=== PATIENT | female | born 1985 | race Caucasian/White ===

== ENCOUNTER 2017-07-23 06:09 | Day surgery (SDC) | payer BC ==
[2017-07-19 15:47] VITALS: BMI 21.6
[2017-07-23] MEDS ORDERED: KETOROLAC TROMETHAMINE 30 MG/1 ML VIAL ONE (07:32)
[2017-07-23] MEDS ORDERED: PROPOFOL 20 ML ONE (07:32)
[2017-07-23] MEDS ORDERED: MIDAZOLAM HCL 2 MG/2 ML SINGLE DOSE VIAL ONE (07:32)
[2017-07-23] MEDS ORDERED: LEVOFLOXACIN 500 MG IVPB 500 MG/100 ML BAG IVPB ONE ×2 (07:34→07:41)
[2017-07-23] MEDS ORDERED: LEVOFLOXACIN 500 MG PREMIX BAG IVPB ONE (07:43)
[2017-07-23] MEDS ORDERED: oxyCODONE HCL 5 MG TABLET PO PRN (07:52)
--- NOTE | 2017-07-23 07:54 | OP ---
Operative Note - Note: Operative Date: 07/23/17 Pre-Operative Diagnosis: rt kidney stone Operation: ESWL Findings: RK stones Post-Operative Diagnosis: Same as Pre-op Surgeon: Javad Green Anesthesia: General Estimated Blood Loss (mls): 0 Operative Report Dictated: Yes
[2017-07-23] MEDS ORDERED: DEXTROSE 5%-0.45% SALINE 1,000 ML IV SCH (08:00)
[2017-07-23] MEDS ORDERED: ACETAMINOPHEN 325 MG TABLET (FP) PO PRN (08:15)
[2017-07-23] MEDS ORDERED: LACTATED RINGERS SOLUTION 1,000 ML IV SCH (08:15)
[2017-07-23] MEDS ORDERED: ONDANSETRON 4 MG/2 ML VIAL IVPUSH PRN (08:15)
[2017-07-23 08:48] VITALS: TEMP 97.9
[2017-07-23 11:24] VITALS: BP 115/71; PULSE 96
--- NOTE | 2017-07-23 15:04 | OP ---
DATE OF OPERATION: 07/23/2017 PREOPERATIVE DIAGNOSIS: Right kidney stones. POSTOPERATIVE DIAGNOSIS: Right kidney stones. PROCEDURE: Extracorporeal shock wave lithotripsy. SURGEON: Magnolia Shi MD INDICATION: Patient is a 32-year-old female who for workup of hematuria was noted to have several stones in mid-pole of right kidney with obstructing mid-pole calyx. She was given treatment options. After reviewing treatment options, patient was taken to the OR for ESWL. Risks, benefits, and alternatives discussed. DESCRIPTION OF PROCEDURE: After informed consent was obtained, patient was taken to the OR and placed supine on the ESWL table. Under active fluoroscopy and sonogram, the mid-pole stones were identified. They were approximately 3 or 4 them. Next, 2500 shocks were delivered under active both fluoroscopy and sonogram to determine that the stones were centered in the crosshairs at all times. In total, 2500 shocks were delivered. After the completion of the shock administration, the patient then awoke from anesthesia and transferred to the recovery room in stable condition. There were no complications. No blood loss. MAGNOLIA SHI M.D. [id number]
== END 2017-07-23 10:45 | disposition home or self-care (01) ==
LOC: JASU-SURG 06:09
PROVIDERS: ATTEND Urology
PROC: 0TF3XZZ Fragmentation in Right Kidney Pelvis, External Approach (ICD-10-PCS; principal; 2017-07-23 07:30)
DX: N20.0 Calculus of kidney (principal)
CPT/HCPCS: 84703; 94760

== ENCOUNTER 2017-12-05 06:10 | Inpatient (IN) | payer OTHER ==
[2017-12-04 08:56] VITALS: BMI 22.1
[2017-12-05] MEDS ORDERED: LIDOCAINE HCL/PF 2% SDV 5ML VIAL ONE (07:35)
[2017-12-05] MEDS ORDERED: MIDAZOLAM HCL 2 MG/2 ML SINGLE DOSE VIAL ONE (07:36)
[2017-12-05] MEDS ORDERED: PROPOFOL 20 ML ONE (07:36)
[2017-12-05] MEDS ORDERED: DEXAMETHASONE SOD PHOSPHATE 4 MG/1 ML VIAL ONE (07:55)
[2017-12-05] MEDS ORDERED: FUROSEMIDE 40 MG/4 ML INJECTABLE VIAL ONE (08:00)
[2017-12-05] MEDS ORDERED: ESMOLOL HCL 100,000 MCG/10 ML VIAL ONE (08:03)
[2017-12-05] MEDS ORDERED: HYDROCORTISONE SOD SUCCINATE 2 ML ONE (08:13)
[2017-12-05] MEDS ORDERED: METOPROLOL TARTRATE 5 MG/5 ML VIAL ONE (08:15)
[2017-12-05] MEDS ORDERED: EPINEPHrine 1:10,000 (P-F SYR) 1 MG/10 ML DISP.SYRIN ONE (08:33)
[2017-12-05] MEDS ORDERED: oxyCODONE HCL 5 MG TABLET PO PRN (08:41)
--- NOTE | 2017-12-05 08:41 | OP ---
Operative Note - Note: Operative Date: 12/05/17 Pre-Operative Diagnosis: rt kidney stone Operation: cysto/rt retrograde/rt ureteroscopy Findings: parenchymal kidney stones Post-Operative Diagnosis: Other (parenchymal rt stones) Surgeon: Javad Green Anesthesiologist/TAMPING MACHINE OPERATOR: Kelly Bryant Anesthesia: General Specimens Removed: none Estimated Blood Loss (mls): 0 Operative Report Dictated: Yes
[2017-12-05] MEDS ORDERED: ELECTROLYTE-148 SOLN 1,000 ML IV SCH (08:45)
[2017-12-05] MEDS ORDERED: ONDANSETRON 4 MG/2 ML VIAL IVPUSH PRN (08:56)
[2017-12-05] MEDS ORDERED: LACTATED RINGERS SOLUTION 1,000 ML IV SCH (09:00)
--- NOTE | 2017-12-05 10:00 | OP ---
DATE OF OPERATION: 12/05/2017 PREOPERATIVE DIAGNOSIS: Right kidney stone. POSTOPERATIVE DIAGNOSIS: Parenchymal stones, right kidney. PROCEDURE: Cystoscopy, retrograde pyelogram, ureteroscopy. SURGEON: Javad Green MD INDICATION: Patient is a 32-year-old female with recurrent nephrolithiasis, had right mid-pole stones on CT scan and ultrasound. Had ESWL in the past but did not pass any stone fragments. Imaging revealed possible calyceal diverticulum with obstruction of one calyx by stone. So, she was taken to the OR for diagnostic ureteroscopy in light of prior failed ESWL and persistence of stone burden. DESCRIPTION OF PROCEDURE: Patient taken to the OR, placed supine on the table. Cardiac monitoring administered and general anesthesia established. She was prepped and draped in dorsal lithotomy position. The cystoscope was inserted into the urethra without difficulty. The bladder was visually normal. At the time of procedure, patient received 500 mg of IV Levaquin. The right ureteral orifice was intubated with the ureteral catheter, and a small amount of contrast was injected for a retrograde pyelogram. There was no evidence of hydronephrosis and no evidence of any stones or filling defect. A guidewire was advanced and then a flexible ureteroscope advanced into the right kidney. The entire kidney was inspected, upper, mid, and lower poles, and no stones were seen. No calyceal diverticulum was seen either, indicating that the stones on CT scan were likely parenchymal. At this point, with no other pathology noted, ureteroscope was then removed, and decision made not to leave a stent. Just about this point, probably 10-15 minutes into the procedure, the patient started developing abnormal rhythm and developed ventricular tachycardia which was treated by Anesthesia. The patient then became bradycardic to a very slow rhythm and then no pulse. A code was called and carried out according to protocol. Patient's rhythm then returned. Of note, patient had around the same time developed redness in the upper chest and the face and neck area with hives, indicating likely allergic reaction, and most likely now in retrospect to the Levaquin. In light of this, she was also given hydrocortisone. Once her heart rate and blood pressure stabilized, she was awoken from anesthesia and with normal mentation, and she was brought to the recovery room in stable condition. Patient will be seen by Cardiology in the recovery room, and further recommendations will be made pending that consultation. Magalis [id number] PAMDINI
[2017-12-05 10:12] LABS: HEMOGLOBIN 12.1 GM/dL (10.7-15.3); MCH 29.4 pg (25.7-33.7); MCHC 33.7 g/dl (32.0-36.0); MEAN CELL VOLUME 87.1 fl (80-96); MEAN PLT VOLUME 10.1 fl (7.5-11.1); PLATELET COUNT 191 K/MM3 (134-434); RBC 4.13 M/mm3 (3.60-5.2)
[2017-12-05 10:41] LABS: ALBUMIN 3.7 g/dl (3.4-5.0); ANION GAP 11 (8-16); BLOOD UREA NITROGEN 20 mg/dL (7-18); CALCIUM 8.6 mg/dL (8.5-10.1); CHLORIDE 106 mmol/L (98-107); CO2 23 mmol/L (21-32); GLUCOSE,RANDOM 148 mg/dL (74-106); POTASSIUM 3.6 mmol/L (3.5-5.1); SODIUM 140 mmol/L (136-145)
[2017-12-05 10:45] LABS: ALK PHOS 46 U/L (45-117); BILIRUBIN,TOTAL 0.6 mg/dL (0.2-1.0); SGOT/AST 35 U/L (15-37); SGPT/ALT 39 U/L (12-78); TOT PROT 6.4 g/dl (6.4-8.2)
--- NOTE | 2017-12-05 11:27 | EKG ---
Test Reason : Blood Pressure : / mmHG Vent. Rate : 091 BPM Atrial Rate : 091 BPM P-R Int : 116 ms QRS Dur : 090 ms QT Int : 370 ms P-R-T Axes : 078 078 -86 degrees QTc Int : 455 ms NORMAL SINUS RHYTHM MARKED ST ABNORMALITY, POSSIBLE INFERIOR SUBENDOCARDIAL INJURY MARKED ST ABNORMALITY, POSSIBLE ANTEROLATERAL SUBENDOCARDIAL INJURY ABNORMAL ECG NO PREVIOUS ECGS AVAILABLE Confirmed by MARY CARMEN TRENT, ERINN ([id number]) on 12/05/2017 11:27:14 AM Referred By: Confirmed By:ERINN LENTZ MD
--- NOTE | 2017-12-05 11:47 | CON.CARD ---
Consult Consult Specialty:: Cardiology Referred by:: Dr. Javad Green Reason for Consultation:: Cardiac arrhythmia during surgery - History of Present Illness History of Present Illness: Patient is a 32 year old female with no significant past medical history except allergies to different food and possibly PCN who presented for ureteral stent with underlying history of nephrolithiasis. In the OR , she was given Levaquin, Metoprolol, Lidocaine, Decadron, Zofran and Lasix and subsequently developed what appeared to be an allergic reaction and arrhythmias. It was thought that she had lost pulse and CPR was initiated and also in the process, Benadryl, steroids and epinephrine was given. Possible polymorphic ventricular arrhythmia was also entertained. She was resuscitated and now in recovery room where cardiology consultation was called. She denies history of QT prolongation or any history of long QT syndrome. She denies any family history of sudden cardiac . She denies chest pain, shortness of breath or palpitations. She denies paroxysmal nocturnal dyspnea. She denies nausea, vomiting, diarrhea or abdominal pain. She denies headache or lightheadedness. She has sinus tachycardia and hypotension in the recovery room and currently receiving IV fluids. She is awake and alert. There is no evidence of hives or skin rash at this time. She denies prior syncope. - History Source History Provided By: Patient, Family Member, Medical Record Limitations to Obtaining History: No Limitations - Past Medical History Renal/: Yes: Renal Calculi ...LMP: 11/09/17 - Past Surgical History Past Surgical History: Yes: Additional Surgical History: Lithotripsy - Alcohol/Substance Use Hx Alcohol Use: Yes (socially) - Smoking History Smoking history: Never smoked Home Medications - Allergies Allergies/Adverse Reactions: Allergies Allergy/AdvReac Type Severity Reaction Status Date / Time levofloxacin [From Levaquin] Allergy Severe Difficulty Verified 12/05/17 10:07 Breathing Penicillins Allergy Intermediate Hives Verified 12/05/17 06:51 mushrooms Allergy "hives" Uncoded 12/05/17 06:51 peaches Allergy "hives" Uncoded 12/05/17 06:51 - Home Medications Home Medications: Ambulatory Orders NK [No Known Home Medication] 07/22/17 Family Disease History - Family Disease History Family History: Denies Review of Systems - Review of Systems Constitutional: denies: Chills, Fever Cardiovascular: denies: Chest Pain, Palpitations, Shortness of Breath Respiratory: denies: Cough, Hemoptysis, Orthopnea, PND, SOB, SOB on Exertion Gastrointestinal: denies: Abdominal Pain, Constipation, Melena, Nausea, Rectal Bleeding, Vomiting Genitourinary: denies: Dysuria, Hematuria Neurological: denies: Dizziness, Headache, Numbness, Seizure, Syncope, Weakness Vital Signs: Vital Signs Temperature 98.2 F 12/05/17 08:39 Pulse Rate 92 H 12/05/17 10:55 Respiratory Rate 18 12/05/17 10:55 Blood Pressure 80/52 12/05/17 10:55 O2 Sat by Pulse Oximetry (%) 98 12/05/17 10:55 Eyes: Yes: PERRL HENT: Yes: Atraumatic Neck: Yes: Supple Respiratory: Yes: CTA Bilaterally Gastrointestinal: Yes: Normal Bowel Sounds, Soft. No: Tenderness Cardiovascular: Yes: Regular Rate and Rhythm, Tachycardia JVD: No Carotid Bruit: No PMI: Non-Displaced Heart Sounds: Yes: S1, S2. No: Gallop Murmur: No: Systolic Murmur, Diastolic Murmur Edema: No - Other Data Labs, Other Data: CBC, BMP 12/05/17 09:00 12/05/17 09:[address] depression and mild QT prolongation Echo: Pending Problem List - Problems (1) Prolonged QT interval Code(s): R94.31 - ABNORMAL ELECTROCARDIOGRAM [ECG] [EKG] (2) NSVT (nonsustained ventricular tachycardia) Code(s): I47.2 - VENTRICULAR TACHYCARDIA (3) Right kidney stone Code(s): N20.0 - CALCULUS OF KIDNEY Assessment/Plan 1. Cardiac arrhythmia and possible arrest during surgery, rule out ventricular arrhythmia 2. QT prolongation 3. Allergies to medications (PCN) 4. Hypotension PLAN: 1. In view of above event, recommend cardiac monitoring on telemetry. Monitor in recovery room reveals sinus tachycardia, QT prolongation and burst of NSVT. Upon review of prior OR records, she had received Levaquin in July 2017 without any events which demonstrates not an allergic reaction to the medication 2. IV fluids resuscitation 3. Transthoracic echocardiography to assess LV/RV and valvular function 4. Serial ECG and full labs to follow 5. Once she is deemed stable, she may continue to be evaluated as outpatient with her senior payroll manager at [facility]. Extended monitoring or other invasive cardiac testing can be done as outpatient if clinically indicated Discussed with family member in detail. Malka Witt MD
[2017-12-05 12:43] LABS: ANISOCYTOSIS 0; PLATELET ESTIMATE NORMAL
--- NOTE | 2017-12-05 13:00 | EKG ---
Test Reason : Blood Pressure : / mmHG Vent. Rate : 099 BPM Atrial Rate : 099 BPM P-R Int : 112 ms QRS Dur : 084 ms QT Int : 362 ms P-R-T Axes : 070 049 045 degrees QTc Int : 464 ms NORMAL SINUS RHYTHM NORMAL ECG WHEN COMPARED WITH ECG OF 05-DEC-2017 08:21, ST NO LONGER DEPRESSED IN LATERAL LEADS T WAVE INVERSION NO LONGER EVIDENT IN INFERIOR LEADS T WAVE INVERSION LESS EVIDENT IN ANTEROLATERAL LEADS Confirmed by ERINN LENTZ MD ([id number]) on 12/05/2017 1:00:39 PM Referred By: Confirmed By:ERINN LENTZ MD
[2017-12-05 14:03] LABS: MAGNESIUM 1.8 mg/dL (1.8-2.4)
--- NOTE | 2017-12-05 15:21 | HP ---
CHIEF COMPLAINT: Cardiac arrest. PCP: Dr. Bonny Barr, [address]; affiliated with [facility]; [phone] HISTORY OF PRESENT ILLNESS: 32 year-old female with a PMH significant for kidney stones s/p lithotripsy x 2 , came to [facility] today for a diagnostic ureteroscopy. According to the operative report, patient was taken to the OR and general anesthesia established. Patient was given IV levaquin 500mg. About 10-15 minutes into the procedure the patient went into v-tach, followed by asystole. A code was called and there was a ROSC. Noted during the time of the code was redness on the upper chest, and hives on the face and neck. Patient was awoken from anesthesia with normal mentation. At the time of this admission patient complained of some chest soreness and she said she felt fatigued but otherwise fine. She denied chest pain, palpitations, SOB. Recent Travel: No PAST MEDICAL HISTORY: Kidney stones PAST SURGICAL HISTORY: Lithotripsy x 2 (15 years ago and July 2017) x 1 (2014) Social History: Smoking: no Alcohol: social Drugs: no Family History: Maternal Grandfather: sudden 76, no cardiac history Grandmother: 72 from DVT/PE Mother: 61, alive, prolonged QT interval, first advised 15 years ago, monitored by PCP Paternal Grandfather: [place] x 3, age 77 of ALS Grandmother: alive at 87 with HTN Father: age 62 alive HTN Two sisters --one sister a & w with MVP and tachycardia, treated age 20-28 with beta blockers --one sister a & w Three children --a & w Allergies levofloxacin [From Levaquin] Allergy (Severe, Verified 12/05/17 10:07) Difficulty Breathing Penicillins Allergy (Intermediate, Verified 12/05/17 06:51) Hives mushrooms Allergy (Uncoded 12/05/17 06:51) "hives" peaches Allergy (Uncoded 12/05/17 06:51) "hives" HOME MEDICATIONS: Home Medications Medication Instructions Recorded NK [No Known Home Medication] 07/22/17 REVIEW OF SYSTEMS: CONSTITUTIONAL: Absent: fever, chills, diaphoresis, generalized weakness, malaise, loss of appetite, weight change HEENT: Absent: rhinorrhea, nasal congestion, throat pain, throat swelling, difficulty swallowing, mouth swelling, ear pain, eye pain, visual changes CARDIOVASCULAR: Absent: chest pain, syncope, palpitations, irregular heart rate, lightheadedness , peripheral edema RESPIRATORY: Absent: cough, shortness of breath, dyspnea with exertion, orthopnea, wheezing, stridor, hemoptysis GASTROINTESTINAL: Absent: abdominal pain, abdominal distension, nausea, vomiting, diarrhea, constipation, melena, hematochezia GENITOURINARY: Absent: dysuria, frequency, urgency, hesitancy, hematuria, flank pain, genital pain MUSCULOSKELETAL: Absent: myalgia, arthralgia, joint swelling, back pain, neck pain SKIN: Absent: rash, itching, pallor HEMATOLOGIC/IMMUNOLOGIC: Absent: easy bleeding, easy bruising, lymphadenopathy, frequent infections ENDOCRINE: Absent: unexplained weight gain, unexplained weight loss, heat intolerance, cold intolerance NEUROLOGIC: Absent: headache, focal weakness or paresthesias, dizziness, unsteady gait, seizure, mental status changes, bladder or bowel incontinence PSYCHIATRIC: Absent: anxiety, depression, suicidal or homicidal ideation, hallucinations. PHYSICAL EXAMINATION Vital Signs Temperature 99 F 12/05/17 14:40 Pulse Rate 98 H 12/05/17 14:40 Respiratory Rate 20 12/05/17 14:40 Blood Pressure 84/52 12/05/17 14:40 O2 Sat by Pulse Oximetry (%) 99 12/05/17 16:43 GENERAL: Awake, alert, and fully oriented, in no acute distress. HEAD: Normal with no signs of trauma. EYES: Pupils equal, round and reactive to light, extraocular movements intact, sclera anicteric, conjunctiva clear. No lid lag. EARS, NOSE, THROAT: Ears normal, nares patent, oropharynx clear without exudates. Moist mucous membranes. NECK: Normal range of motion, supple without lymphadenopathy, JVD, or masses. LUNGS: Breath sounds equal, clear to auscultation bilaterally. No wheezes, and no crackles. No accessory muscle use. HEART: Regular rate and rhythm, normal S1 and S2 without murmur, rub or gallop. ABDOMEN: Soft, nontender, not distended, normoactive bowel sounds, no guarding, no rebound, no masses. No hepatomegaly or splenomegaly. MUSCULOSKELETAL: Normal range of motion at all joints. No bony deformities or tenderness. No CVA tenderness. UPPER EXTREMITIES: 2+ pulses, warm, well-perfused. No cyanosis. No clubbing. No peripheral edema. LOWER EXTREMITIES: 2+ pulses, warm, well-perfused. No calf tenderness. No peripheral edema. NEUROLOGICAL: Cranial nerves II-XII intact. Normal speech. Laboratory Results - last 24 hr 12/05/17 12/05/17 12/05/17 06:27 09:00 09:00 WBC 8.0 RBC 4.13 Hgb 12.1 Hct 36.0 MCV 87.1 MCH 29.4 MCHC 33.7 RDW 13.0 Plt Count 191 MPV 10.1 Total Counted Neutrophils % (Manual) 86.0 H Band Neutrophils % 1.0 Lymphocytes % (Manual) 9.0 Monocytes % (Manual) 1 L Eosinophils % (Manual) 0.0 Basophils % (Manual) 0.0 Myelocytes % (Man) 0 Promyelocytes % (Man) 0 Blast Cells % (Manual) 0 Nucleated RBC % 0 Metamyelocytes 0 Differential Comment Hypersegmented Neuts Plasma Cells Smudge Cells Other Cell Type Hypochromia Toxic Granulation Dohle Bodies Boni Rods Platelet Estimate Normal Platelet Comment Polychromasia Poikilocytosis 0 Basophilic Stippling Anisocytosis 0 Microcytosis Macrocytosis Spherocytes Siderocytes Sickle Cells Target Cells Tear Drop Cells Ovalocytes Stomatocytes Helmet Cells Singh-Bogota Bodies [place] Rings [place] Cells Acanthocytes (Spur) Rouleaux Fragmented RBCs Schistocytes ESR Sodium 140 Potassium 3.6 Chloride 106 Carbon Dioxide 23 Anion Gap 11 BUN 20 H Creatinine 1.0 Creat Clearance w eGFR > 60 Random Glucose 148 H Calcium 8.6 Magnesium 1.8 Total Bilirubin 0.6 AST 35 ALT 39 Alkaline Phosphatase 46 Creatine Kinase 47 Troponin I 0.29 H Total Protein 6.4 Albumin 3.7 Urine HCG, Qual Negative Imaging 12/05 Echo: LV function moderately reduced EF 40-45%, moderate global hypokinesis ; RV normal; moderate MR; trace TR; ASSESSMENT/PLAN: Cardiac arrest Elevated troponins Systolic dysfunction --asystolic arrest during diagnostic ureteroscopy with ROSC --troponins 0,29-->4.11; third pending --Echo shows reduced LV function and moderate global hypokinesis --continue telemetry Prolonged QTc interval --serial ECGs --avoid QTc prolonging medications Nephrolithiasis --stones likely parenchymal --no stent placed FEN Fluids: PO intake adequate Electrolytes: keep K>4.0, Mg >2.0 Nutrition: regular diet DVT prophylaxis: oob, ambulation Dispo: continues to require observation. Visit type - Emergency Visit Emergency Visit: Yes ED Registration Date: 12/05/17 Care time: The patient presented to the Emergency Department on the above date and was hospitalized for further evaluation of their emergent condition. - New Patient This patient is new to me today: Yes Date on this admission: 12/06/17 - Critical Care Critical Care patient: Yes Total Critical Care Time (in minutes): 90 Critical Care Statement: The care of this patient involved high complexity decision making to prevent further life threatening deterioration of the patient 's condition and/or to evaluate & treat vital organ system(s) failure or risk of failure. Hospitalist Screening - Colonoscopy Questionnaire Colonoscopy Questionnaire: Colonoscopy Questionnaire - Patient: 50 - 75 years old and never had a screening colonoscopy: No History of colon or rectal polyps, or CA: No History of IBD, Crohn's disease or UC: No History of abdominal radiation therapy as a child: No - Relative: 1 with colon or rectal CA, or polyps at age 60 or younger: No Colon or rectal CA diagnosed at age 45 or younger: No Multiple relatives with colon or rectal CA: No - Outcome: Screening Result: Negative Screen
[2017-12-05] MEDS ORDERED: MAGNESIUM SULF 50% (8.12 MEQ/2 ML-1 GM VIAL) IVPB ONE (17:40)
[2017-12-05] MEDS: MAGNESIUM 1GM/D5W - 1 GM/100 ML IVPB IVPB SCH ×2 (20:20→21:33)
[2017-12-05] MEDS ORDERED: ACETAMINOPHEN 325 MG TABLET (FP) PO PRN (20:25)
[2017-12-05] MEDS: POTASSIUM CHLORIDE TABS 20 MEQ TABLET.ER (FP) PO SCH (21:32)
[2017-12-05] MEDS ORDERED: MUPIROCIN 2% TOPICAL OINTMENT FOR DECOLONIZATION NS SCH (22:00)
[2017-12-05] MEDS ORDERED: CHLORHEXIDINE GLUCONATE 4% CLEANSER FOR DECOLONIZATION TP SCH (22:00)
[2017-12-06] MEDS: POTASSIUM CHLORIDE TABS 20 MEQ TABLET.ER (FP) PO SCH (00:31)
[2017-12-06 07:40] LABS: BASO % 0.2 % (0-2.0); EOS % 0.1 % (0-4.5); HEMOGLOBIN 11.6 GM/dL (10.7-15.3); LYMPH % 9.8 % (8-40); MCH 29.7 pg (25.7-33.7); MCHC 34.2 g/dl (32.0-36.0); MEAN CELL VOLUME 86.9 fl (80-96); MEAN PLT VOLUME 10.1 fl (7.5-11.1); MONO % 5.5 % (3.8-10.2); NEUT % 84.4 % (42.8-82.8); PLATELET COUNT 178 K/MM3 (134-434); RBC 3.91 M/mm3 (3.60-5.2); RDW 13.2 % (11.6-15.6); WHITE BLOOD COUNT 9.3 K/mm3 (4.0-10.0)
--- NOTE | 2017-12-06 07:46 | PN ---
Progress Note (short form) - Note Progress Note: Anesthesia POD#1 S/P Cystoscopy and retrograde pyelogram under GA Have severe arrythmia to the extent of PEA,cardiac massage and chemical resussitation done. Recovered quickly. Also a big rash on her chest and IV site was noted. So epinephrine,solu-cortef and benadryl was given. Rash disappeared in couple of hours. Patient extubated on the OR awake. Cardiology consult was called and related blood test and ECHO done. CArdiac enzymes are coming positive. Patient feels much better,VSS. A/P Unexpected cardiac evet during the procedure. Resussitated well. Waiting for cardiologists opinon. Kelly Bryant MD.
[2017-12-06 08:13] LABS: ALBUMIN 3.2 g/dl (3.4-5.0); ALK PHOS 39 U/L (45-117); ANION GAP 4 (8-16); BILIRUBIN,TOTAL 0.5 mg/dL (0.2-1.0); BLOOD UREA NITROGEN 14 mg/dL (7-18); CHLORIDE 114 mmol/L (98-107); CO2 24 mmol/L (21-32); CREATININE 0.8 mg/dL (0.55-1.02); GLUCOSE,RANDOM 99 mg/dL (74-106); MAGNESIUM 2.4 mg/dL (1.8-2.4); SGOT/AST 32 U/L (15-37); SGPT/ALT 36 U/L (12-78); SODIUM 142 mmol/L (136-145); TOT PROT 5.7 g/dl (6.4-8.2)
--- NOTE | 2017-12-06 08:21 | PN ---
Physical Exam: SUBJECTIVE: Patient seen and examined OBJECTIVE: Vital Signs Period Temp Pulse Resp BP Sys/Sosa Pulse Ox Last 24 Hr 97.5 F-99 F 87-113 16-20 74-98/39-68 97-100 GENERAL: The patient is awake, alert, and fully oriented, in no acute distress. HEAD: Normal with no signs of trauma. EYES: PERRL, extraocular movements intact, sclera anicteric, conjunctiva clear. No ptosis. ENT: Ears normal, nares patent, oropharynx clear without exudates, moist mucous membranes. NECK: Trachea midline, full range of motion, supple. LUNGS: Breath sounds equal, clear to auscultation bilaterally, no wheezes, no crackles, no accessory muscle use. HEART: Regular rate and rhythm, S1, S2 without murmur, rub or gallop. ABDOMEN: Soft, nontender, nondistended, normoactive bowel sounds, no guarding, no rebound, no hepatosplenomegaly, no masses. EXTREMITIES: 2+ pulses, warm, well-perfused, no edema. NEUROLOGICAL: Cranial nerves II through XII grossly intact. Normal speech, gait not observed. PSYCH: Normal mood, normal affect. SKIN: Warm, dry, normal turgor, no rashes or lesions noted Laboratory Results - last 24 hr 12/05/17 12/05/17 12/05/17 09:00 09:00 09:00 WBC 8.0 RBC 4.13 Hgb 12.1 Hct 36.0 MCV 87.1 MCH 29.4 MCHC 33.7 RDW 13.0 Plt Count 191 MPV 10.1 Total Counted Neutrophils % Neutrophils % (Manual) 86.0 H Band Neutrophils % 1.0 Lymphocytes % Lymphocytes % (Manual) 9.0 Monocytes % Monocytes % (Manual) 1 L Eosinophils % Eosinophils % (Manual) 0.0 Basophils % Basophils % (Manual) 0.0 Myelocytes % (Man) 0 Promyelocytes % (Man) 0 Blast Cells % (Manual) 0 Nucleated RBC % 0 Metamyelocytes 0 Differential Comment Hypersegmented Neuts Plasma Cells Smudge Cells Other Cell Type Hypochromia Toxic Granulation Dohle Bodies Boni Rods Platelet Estimate Normal Platelet Comment Polychromasia Poikilocytosis 0 Basophilic Stippling Anisocytosis 0 Microcytosis Macrocytosis Spherocytes Siderocytes Sickle Cells Target Cells Tear Drop Cells Ovalocytes Stomatocytes Helmet Cells Singh-Paul Bodies [place] Rings [place] Cells Acanthocytes (Spur) Rouleaux Fragmented RBCs Schistocytes ESR Sodium 140 Potassium 3.6 Chloride 106 Carbon Dioxide 23 Anion Gap 11 BUN 20 H Creatinine 1.0 Creat Clearance w eGFR > 60 Random Glucose 148 H Calcium 8.6 Phosphorus Magnesium 1.8 Total Bilirubin 0.6 AST 35 ALT 39 Alkaline Phosphatase 46 Creatine Kinase 47 Cancelled Troponin I 0.29 H Cancelled Total Protein 6.4 Albumin 3.7 12/05/17 12/05/17 12/05/17 09:00 09:00 09:38 WBC RBC Hgb Hct MCV MCH MCHC RDW Plt Count MPV Total Counted Cancelled Neutrophils % Neutrophils % (Manual) Cancelled Band Neutrophils % Cancelled Lymphocytes % Lymphocytes % (Manual) Cancelled Monocytes % Monocytes % (Manual) Cancelled Eosinophils % Eosinophils % (Manual) Cancelled Basophils % Basophils % (Manual) Cancelled Myelocytes % (Man) Cancelled Promyelocytes % (Man) Cancelled Blast Cells % (Manual) Cancelled Nucleated RBC % Cancelled Metamyelocytes Cancelled Differential Comment Cancelled Hypersegmented Neuts Cancelled Plasma Cells Cancelled Smudge Cells Cancelled Other Cell Type Cancelled Hypochromia Cancelled Toxic Granulation Cancelled Dohle Bodies Cancelled Boni Rods Cancelled Platelet Estimate Cancelled Platelet Comment Cancelled Polychromasia Cancelled Poikilocytosis Cancelled Basophilic Stippling Cancelled Anisocytosis Cancelled Microcytosis Cancelled Macrocytosis Cancelled Spherocytes Cancelled Siderocytes Cancelled Sickle Cells Cancelled Target Cells Cancelled Tear Drop Cells Cancelled Ovalocytes Cancelled Stomatocytes Cancelled Helmet Cells Cancelled Singh-Paul Bodies Cancelled [place] Rings Cancelled [place] Cells Cancelled Acanthocytes (Spur) Cancelled Rouleaux Cancelled Fragmented RBCs Cancelled Schistocytes Cancelled ESR 3 Sodium Potassium Chloride Carbon Dioxide Anion Gap BUN Creatinine Creat Clearance w eGFR Random Glucose Calcium Phosphorus Magnesium Cancelled Total Bilirubin AST ALT Alkaline Phosphatase Creatine Kinase Troponin I Total Protein Albumin 12/05/17 12/05/17 12/06/17 16:15 21:45 07:07 WBC 9.3 RBC 3.91 Hgb 11.6 Hct 34.0 MCV 86.9 MCH 29.7 MCHC 34.2 RDW 13.2 Plt Count 178 MPV 10.1 Total Counted Neutrophils % 84.4 H Neutrophils % (Manual) Band Neutrophils % Lymphocytes % 9.8 Lymphocytes % (Manual) Monocytes % 5.5 Monocytes % (Manual) Eosinophils % 0.1 Eosinophils % (Manual) Basophils % 0.2 Basophils % (Manual) Myelocytes % (Man) Promyelocytes % (Man) Blast Cells % (Manual) Nucleated RBC % Metamyelocytes Differential Comment Hypersegmented Neuts Plasma Cells Smudge Cells Other Cell Type Hypochromia Toxic Granulation Dohle Bodies Boni Rods Platelet Estimate Platelet Comment Polychromasia Poikilocytosis Basophilic Stippling Anisocytosis Microcytosis Macrocytosis Spherocytes Siderocytes Sickle Cells Target Cells Tear Drop Cells Ovalocytes Stomatocytes Helmet Cells Singh-Paul Bodies [place] Rings [place] Cells Acanthocytes (Spur) Rouleaux Fragmented RBCs Schistocytes ESR Sodium Potassium Chloride Carbon Dioxide Anion Gap BUN Creatinine Creat Clearance w eGFR Random Glucose Calcium Phosphorus Magnesium Total Bilirubin AST ALT Alkaline Phosphatase Creatine Kinase 129 136 Troponin I 4.11 H* 3.78 H* Total Protein Albumin 12/06/17 07:07 WBC RBC Hgb Hct MCV MCH MCHC RDW Plt Count MPV Total Counted Neutrophils % Neutrophils % (Manual) Band Neutrophils % Lymphocytes % Lymphocytes % (Manual) Monocytes % Monocytes % (Manual) Eosinophils % Eosinophils % (Manual) Basophils % Basophils % (Manual) Myelocytes % (Man) Promyelocytes % (Man) Blast Cells % (Manual) Nucleated RBC % Metamyelocytes Differential Comment Hypersegmented Neuts Plasma Cells Smudge Cells Other Cell Type Hypochromia Toxic Granulation Dohle Bodies Boni Rods Platelet Estimate Platelet Comment Polychromasia Poikilocytosis Basophilic Stippling Anisocytosis Microcytosis Macrocytosis Spherocytes Siderocytes Sickle Cells Target Cells Tear Drop Cells Ovalocytes Stomatocytes Helmet Cells Singh-Paul Bodies [place] Rings [place]ienna Cells Acanthocytes (Spur) Rouleaux Fragmented RBCs Schistocytes ESR Sodium 142 Potassium 5.0 Chloride 114 H Carbon Dioxide 24 Anion Gap 4 L BUN 14 Creatinine 0.8 Creat Clearance w eGFR > 60 Random Glucose 99 Calcium 8.0 L Phosphorus 2.0 L Magnesium 2.4 Total Bilirubin 0.5 AST 32 ALT 36 Alkaline Phosphatase 39 L Creatine Kinase Troponin I Total Protein 5.7 L Albumin 3.2 L Active Medications Generic Name Dose Route Start Last Admin Trade Name Freq PRN Reason Stop Dose Admin Acetaminophen 650 mg 12/05/17 20:25 12/05/17 23:00 Tylenol - PO 650 mg Q6H PRN Administration PAIN LEVEL 1 - 3 ASSESSMENT/PLAN:
--- NOTE | 2017-12-06 09:15 | PN ---
Progress Note, Physician History of Present Illness: No further arrhythmias on telemetry. She had developed diffuse hives after Levaquin and previously had local site reaction with prior injection, treated immediately for anaphylaxis. - Current Medication List Current Medications: Active Medications Acetaminophen (Tylenol -) 650 mg PO Q6H PRN PRN Reason: PAIN LEVEL 1 - 3 Last Admin: 12/05/17 23:00 Dose: 650 mg - Objective Vital Signs: Vital Signs Temperature 98.5 F 12/06/17 05:00 Pulse Rate 87 12/06/17 05:00 Respiratory Rate 20 12/06/17 05:00 Blood Pressure 93/61 12/06/17 05:00 O2 Sat by Pulse Oximetry (%) 97 12/05/17 21:00 Constitutional: Yes: No Distress, Calm Neck: Yes: Supple Cardiovascular: Yes: Tachycardia Respiratory: Yes: Regular, CTA Bilaterally Gastrointestinal: Yes: Normal Bowel Sounds, Soft Edema: No Labs: CBC, BMP 12/06/17 07:07 12/06/17 07:07 - ....Imaging EKG: Report Reviewed (Tele: Sinus tachycardia w/o ventricular arrhythmia EKG: ST @ [address] changes, QTc 502 msec) Problem List - Problems (1) NSVT (nonsustained ventricular tachycardia) Code(s): I47.2 - VENTRICULAR TACHYCARDIA (2) Prolonged QT interval Code(s): R94.31 - ABNORMAL ELECTROCARDIOGRAM [ECG] [EKG] (3) Right kidney stone Code(s): N20.0 - CALCULUS OF KIDNEY (4) Anaphylaxis Code(s): T78.2XXA - ANAPHYLACTIC SHOCK, UNSPECIFIED, INITIAL ENCOUNTER Qualifiers: Encounter type: sequela Qualified Code(s): T78.2XXS - Anaphylactic shock, unspecified, sequela Assessment/Plan 11/05/2017 Echo: Normal LV size with moderate decreased LV fxn, mod MR, tr TR 1. Cardiac arrhythmia and possible arrest during surgery, rule out ventricular arrhythmia 2. QT prolongation 3. Allergies to medications (PCN, levaquin) with likely anaphylaxis 4. Demand ischemia post resuscitation 5. LV dysfunction (moderate) post cpr 6. Nephrolithiasis POD#1 s/p cystoscopy and retrograde pyelogram under GA PLAN: 1. Allergen avoidance 2. Trops have peaked 3. She may be evaluated as outpatient with her rn document improvement specialist at [facility]. Extended monitoring or and reassessment of LV fxn can be done as outpatient as clinically indicated
--- NOTE | 2017-12-06 09:21 | DS ---
Physical Exam: SUBJECTIVE: Patient seen and examined at bedside. Continues to have musculoskeltal soreness over chest. No other symptoms. No chest pain, no palpitations, no SOB overnight. OBJECTIVE: Vital Signs Period Temp Pulse Resp BP Sys/Sosa Pulse Ox Last 24 Hr 97.5 F-99 F 87-110 18-20 76-98/39-68 97-100 PHYSICAL EXAM GENERAL: The patient is awake, alert, and fully oriented, in no acute distress. LUNGS: Breath sounds equal, clear to auscultation bilaterally, no wheezes, no crackles, no accessory muscle use. HEART: Regular rate and rhythm, S1, S2 without murmur, rub or gallop. EXTREMITIES: 2+ pulses, warm, well-perfused, no edema. NEUROLOGICAL: Cranial nerves II through XII grossly intact. Normal speech Laboratory Results - last 24 hr 12/05/17 12/05/17 12/05/17 09:00 09:00 09:00 WBC 8.0 RBC 4.13 Hgb 12.1 Hct 36.0 MCV 87.1 MCH 29.4 MCHC 33.7 RDW 13.0 Plt Count 191 MPV 10.1 Total Counted Neutrophils % Neutrophils % (Manual) 86.0 H Band Neutrophils % 1.0 Lymphocytes % Lymphocytes % (Manual) 9.0 Monocytes % Monocytes % (Manual) 1 L Eosinophils % Eosinophils % (Manual) 0.0 Basophils % Basophils % (Manual) 0.0 Myelocytes % (Man) 0 Promyelocytes % (Man) 0 Blast Cells % (Manual) 0 Nucleated RBC % 0 Metamyelocytes 0 Differential Comment Hypersegmented Neuts Plasma Cells Smudge Cells Other Cell Type Hypochromia Toxic Granulation Dohle Bodies Boni Rods Platelet Estimate Normal Platelet Comment Polychromasia Poikilocytosis 0 Basophilic Stippling Anisocytosis 0 Microcytosis Macrocytosis Spherocytes Siderocytes Sickle Cells Target Cells Tear Drop Cells Ovalocytes Stomatocytes Helmet Cells [place] Bodies [place] Rings [place] Cells Acanthocytes (Spur) Rouleaux Fragmented RBCs Schistocytes ESR Sodium 140 Potassium 3.6 Chloride 106 Carbon Dioxide 23 Anion Gap 11 BUN 20 H Creatinine 1.0 Creat Clearance w eGFR > 60 Random Glucose 148 H Calcium 8.6 Phosphorus Magnesium 1.8 Total Bilirubin 0.6 AST 35 ALT 39 Alkaline Phosphatase 46 Creatine Kinase 47 Cancelled Troponin I 0.29 H Cancelled Total Protein 6.4 Albumin 3.7 12/05/17 12/05/17 12/06/17 16:15 21:45 07:07 WBC 9.3 RBC 3.91 Hgb 11.6 Hct 34.0 MCV 86.9 MCH 29.7 MCHC 34.2 RDW 13.2 Plt Count 178 MPV 10.1 Total Counted Neutrophils % 84.4 H Neutrophils % (Manual) Band Neutrophils % Lymphocytes % 9.8 Lymphocytes % (Manual) Monocytes % 5.5 Monocytes % (Manual) Eosinophils % 0.1 Eosinophils % (Manual) Basophils % 0.2 Basophils % (Manual) Myelocytes % (Man) Promyelocytes % (Man) Blast Cells % (Manual) Nucleated RBC % Metamyelocytes Differential Comment Hypersegmented Neuts Plasma Cells Smudge Cells Other Cell Type Hypochromia Toxic Granulation Dohle Bodies Boni Rods Platelet Estimate Platelet Comment Polychromasia Poikilocytosis Basophilic Stippling Anisocytosis Microcytosis Macrocytosis Spherocytes Siderocytes Sickle Cells Target Cells Tear Drop Cells Ovalocytes Stomatocytes Helmet Cells [place] Bodies [place] Rings [place] Cells Acanthocytes (Spur) Rouleaux Fragmented RBCs Schistocytes ESR Sodium Potassium Chloride Carbon Dioxide Anion Gap BUN Creatinine Creat Clearance w eGFR Random Glucose Calcium Phosphorus Magnesium Total Bilirubin AST ALT Alkaline Phosphatase Creatine Kinase 129 136 Troponin I 4.11 H* 3.78 H* Total Protein Albumin 12/06/17 07:07 WBC RBC Hgb Hct MCV MCH MCHC RDW Plt Count MPV Total Counted Neutrophils % Neutrophils % (Manual) Band Neutrophils % Lymphocytes % Lymphocytes % (Manual) Monocytes % Monocytes % (Manual) Eosinophils % Eosinophils % (Manual) Basophils % Basophils % (Manual) Myelocytes % (Man) Promyelocytes % (Man) Blast Cells % (Manual) Nucleated RBC % Metamyelocytes Differential Comment Hypersegmented Neuts Plasma Cells Smudge Cells Other Cell Type Hypochromia Toxic Granulation Dohle Bodies Boni Rods Platelet Estimate Platelet Comment Polychromasia Poikilocytosis Basophilic Stippling Anisocytosis Microcytosis Macrocytosis Spherocytes Siderocytes Sickle Cells Target Cells Tear Drop Cells Ovalocytes Stomatocytes Helmet Cells [place] Bodies [place] Rings [place] Cells Acanthocytes (Spur) Rouleaux Fragmented RBCs Schistocytes ESR Sodium 142 Potassium 5.0 Chloride 114 H Carbon Dioxide 24 Anion Gap 4 L BUN 14 Creatinine 0.8 Creat Clearance w eGFR > 60 Random Glucose 99 Calcium 8.0 L Phosphorus 2.0 L Magnesium 2.4 Total Bilirubin 0.5 AST 32 ALT 36 Alkaline Phosphatase 39 L Creatine Kinase Troponin I Total Protein 5.7 L Albumin 3.2 L HOSPITAL COURSE: Date of Admission:12/05/17 Date of Discharge: 12/06/17 Pre hospital course 32 year-old female with a PMH significant for kidney stones s/p lithotripsy x 2 , came to [facility] today for a diagnostic ureteroscopy. OR course Patient was taken to the OR and general anesthesia established. Patient was given IV levaquin 500mg. About 10-15 minutes into the procedure the patient developed bradycardia followed by asystole. Noted during the time of the code was redness on the upper chest, and hives on the face and neck: 8:08a Intubated, compressions, bradycardia 8:09a Compressions, asystole, epi 8:10a Pulse, SVT 8:13a Pulse, ST, benadryl IVP 50mg 8:15a Pulse ST, hydrocortisone IVP 100mg Patient was awoken from anesthesia with normal mentation. Subsequent hospital course Patient was observed overnight on telemetry with no significant events noted. Serial troponins 0.29-->4.11-->3.78. Echo showed reduced LV function and moderate global hypokinesis. Serial ECGs showed prolonged QTc interval. Patient was interviewed extensively about her history of allergies. She recalls taking Cipro in the past for UTIs without side effect. She received levaquin IV in July 2017 during lithotripsy. She recalls developing a small rash at the IV site for which she was given benadryl. Patient was also interviewed extensively about her family history which revealed a history of prolonged QT syndrome: Family History Maternal Grandfather: sudden 76, no cardiac history Grandmother: 72 from DVT/PE Mother: 61, alive, prolonged QT interval, first advised 15 years ago, monitored by PCP Paternal Grandfather: [place] x 3, age 77 of ALS Grandmother: alive at 87 with HTN Father: age 62 alive HTN Two sisters --one sister a & w with MVP and tachycardia, treated age 20-28 with beta blockers --one sister a & w Three children --a & w Discharge Spoke with ANN-MARIE Buchanan at the office of Dr. Bonny Barr, patient's PCP. Discussed events and will forward H&P, discharge summary, ECGs, and echo report. Patient will be seen later today at that office. Patient also plans to follow up with Dr. Melita Hernandez, outside sales account representative at [facility]. Will forward same info to his office. Patient has been given a CD-ROM containing her echo imaging. Minutes to complete discharge: 60 Discharge Summary Reason For Visit: URETER STONE,CARDIAC ARRHYTHMIA Current Active Problems NSVT (nonsustained ventricular tachycardia) (Acute) Prolonged QT interval (Acute) Condition: Improved - Instructions Diet, Activity, Other Instructions: We have spoken to ANN-MARIE Buchanan at the office of Dr. Bonny Barr. She is awaiting your call and you can be seen at that office later today. The office will be faxed a copy of your discharge summary. You have been provided with copies of your echocardiagram report and ECGs. You will also receive a copy of your echocardiagram on CD-ROM. Please let us know if you need any further information or assistance. Return to the closest emergency department for any new or worsening symptoms. Jewell Gusman [facility] at [facility] [phone] Disposition: HOME - Home Medications Comprehensive Discharge Medication List: Ambulatory Orders NK [No Known Home Medication] 07/22/17 This patient is new to me today: No Emergency Visit: Yes ED Registration Date: 12/05/17 Care time: The patient presented to the Emergency Department on the above date and was hospitalized for further evaluation of their emergent condition. Critical Care patient: No - Discharge Referral Referred to [facility] Med P.C.: No
--- NOTE | 2017-12-06 09:37 | EKG ---
Test Reason : Blood Pressure : / mmHG Vent. Rate : 106 BPM Atrial Rate : 106 BPM P-R Int : 120 ms QRS Dur : 080 ms QT Int : 378 ms P-R-T Axes : 067 063 062 degrees QTc Int : 502 ms SINUS TACHYCARDIA NONSPECIFIC ST ABNORMALITY Confirmed by RICHARD OCONNOR MD ([id number]) on 12/06/2017 9:37:42 AM Referred By: Confirmed By:RICHARD OCONNOR MD
--- NOTE | 2017-12-06 09:39 | EKG ---
Test Reason : Blood Pressure : / mmHG Vent. Rate : 096 BPM Atrial Rate : 096 BPM P-R Int : 112 ms QRS Dur : 088 ms QT Int : 374 ms P-R-T Axes : 072 060 059 degrees QTc Int : 472 ms NORMAL SINUS RHYTHM NONSPECIFIC ST ABNORMALITY ABNORMAL ECG WHEN COMPARED WITH ECG OF 05-DEC-2017 11:29, NO SIGNIFICANT CHANGE WAS FOUND Confirmed by RICHARD OCONNOR MD ([id number]) on 12/06/2017 9:38:55 AM Referred By: Confirmed By:RICHARD OCONNOR MD
[2017-12-06 09:59] VITALS: BP 98/66; PULSE 100; TEMP 98.6
== END 2017-12-06 12:14 | disposition home or self-care (01) | DRG 465 ==
LOC: JASU-SURG 06:10 → SUATTDRO 06:10 → JSAMEDAYSX 13:23 → J4S 15:48
PROVIDERS: ADMIT Internal Medicine; ATTEND Nurse Practitioner Acute Care
PROC: 0TJB8ZZ Inspection of Bladder, Via Natural or Artificial Opening Endoscopic (ICD-10-PCS; principal; 2017-12-05 07:30)
PROC: BT1BZZZ Fluoroscopy of Bladder and Urethra (ICD-10-PCS; 2017-12-05 07:30)
DX: N20.0 Calculus of kidney (principal); I47.2 Ventricular tachycardia; I95.9 Hypotension, unspecified; I45.81 Long QT syndrome; Z88.0 Allergy status to penicillin; L50.8 Other urticaria; T37.8X5A Adverse effect of other specified systemic anti-infectives and antiparasitics, initial encounter
CPT/HCPCS: 36415; 76000-TC-FY; 80048; 80053; 82550; 83735; 84100; 84484; 84703; 85025; 85027; 85651; 93005; 93010; 93306-TC; 94760